=== PATIENT | female | born 1940 | race African-American/Black ===

== ENCOUNTER → 2019-10-08 | Outpatient (CLI) | payer MEDICARE, MEDICAID | END | disposition home or self-care (01) | LOC: CT 07:55 | PROVIDERS: ATTEND Surgery | DX: I51.7 Cardiomegaly (principal); R22.9 Localized swelling, mass and lump, unspecified | CPT/HCPCS: 71250 ==

== ENCOUNTER → 2019-11-07 | Day surgery (SDC) | payer MEDICARE, MEDICAID ==
[~2019-11-07] MED LIST: LIDOCAINE HCL 1% 20ML VIAL (Pyxis) INJ ONE; SODIUM BICARBONATE 4% (2.4MEQ) 5ML VIAL IV ONE
== END | disposition home or self-care (01) ==
LOC: RAD 09:34
PROVIDERS: ATTEND Radiology Radiation Oncology
DX: R59.0 Localized enlarged lymph nodes (principal); C79.89 Secondary malignant neoplasm of other specified sites; Z85.3 Personal history of malignant neoplasm of breast; Z88.5 Allergy status to narcotic agent
CPT/HCPCS: 38505; 76942; 88305; J3490; 19083

== ENCOUNTER 2022-09-18 13:05 | Inpatient (IN) | payer MEDICARE, MEDICAID ==
[~2022-09-18] VITALS: Ht 162.6 cm; Wt 50.6 kg
[2022-09-18] MEDS ORDERED: SODIUM CHLORIDE 0.9% 1,000 ML IV ONE (14:15)
[2022-09-18 15:55] LABS: HEMATOCRIT. 40.1 % (36.0-48.0); HEMOGLOBIN. 13.2 g/dL (12.0-16.0); MEAN CORPUSCULAR HEMOGLOBIN 26.5 pg (28.0-32.0); MEAN CORPUSCULAR VOLUME 80.8 fL (81.0-99.0); MEAN PLATELET VOLUME 8.9 fl (7.4-10.4); RED BLOOD CELL COUNT 4.96 mill/uL (4.2-5.4); RED CELL DISTRIBUTION WIDTH 17.8 % (11.6-14.6)
[2022-09-18 15:58] LABS: CHLORIDE 103 mEq/L (98-107)
[2022-09-18 16:39] LABS: PLATELET ESTIMATE NORMAL
[2022-09-18 16:48] LABS: PLATELET 226 x1000/uL (130-400)
[2022-09-18 17:21] LABS: CLARITY URINE TURBID (CLEAR); COLOR URINE DARK YELLOW (YELLOW); KETONES URINE 1+ (NEGATIVE); LEUKOCYTE ESTERASE URINE 1+ (NEGATIVE); NITRITE URINE NEGATIVE (NEGATIVE); OCCULT BLOOD URINE 1+ (NEGATIVE); PROTEIN URINE 3+ (NEGATIVE); SPECIFIC GRAVITY URINE 1.028 (1.005-1.030)
[2022-09-18] MEDS ORDERED: HYDROCODONE/ACETAMINOPHEN 5/325MG TABLET PO PRN (19:15)
[2022-09-18] MEDS ORDERED: PIPERACILLIN/TAZ 3.375G PREMIX 50 ML IV NR (19:15)
[2022-09-18] MEDS: DEXT 5%/0.45% NACL 1000ML 1,000 ML IV SCH (20:30)
[2022-09-19] MEDS ORDERED: ASPIRIN 81MG TABLET PO NR (03:45)
[2022-09-19] MEDS ORDERED: SODIUM POLYSTYRENE SULFONATE 15 G/60 ML BOT PO NR (03:45)
[2022-09-19] MEDS: HYDROCODONE/ACETAMINOPHEN 5/325MG TABLET PO PRN ×2 (04:57→22:29)
[2022-09-19] MEDS ORDERED: PIPERACILLIN/TAZOBACTAM 3.375 G in DEXTROSE 5% WATER 50 ML IV SCH (08:00)
[2022-09-19] MEDS: ONDANSETRON HCL 4MG/2ML INJ IV PRN (09:12)
[2022-09-19] MEDS ORDERED: NALOXONE HCL 0.4MG/ML VIAL IV PRN (09:45)
[2022-09-19 10:04] VITALS: BP 168/74
[2022-09-19] MEDS ORDERED: ASPI-1497 PO (11:10)
[2022-09-19] MEDS ORDERED: ATOR-2 PO (11:10)
[2022-09-19] MEDS ORDERED: MEGE40TA8 PO (11:10)
[2022-09-19] MEDS ORDERED: AMLO10TA80 PO (11:10)
[2022-09-19] MEDS ORDERED: ESOM40CA PO (11:10)
[2022-09-19] MEDS ORDERED: OXYB5TAB17 PO (11:10)
[2022-09-19] MEDS ORDERED: IRBE150T24 PO (11:10)
[2022-09-19] MEDS: AMLODIPINE 5MG TABLET PO SCH (11:22)
[2022-09-19] MEDS: DEXT 5%/0.45% NACL 1000ML 1,000 ML IV SCH ×2 (11:22→14:35)
[2022-09-19 11:27] VITALS: BP 168/74
[2022-09-19 12:00] VITALS: BP 132/49
[2022-09-19 12:06] LABS: HEMATOCRIT. 33.7 % (36.0-48.0); HEMOGLOBIN. 11.4 g/dL (12.0-16.0); MEAN CORPUSCULAR HEMOGLOBIN 26.7 pg (28.0-32.0); MEAN CORPUSCULAR VOLUME 79.1 fL (81.0-99.0); RED BLOOD CELL COUNT 4.26 mill/uL (4.2-5.4); RED CELL DISTRIBUTION WIDTH 17.8 % (11.6-14.6)
[2022-09-19 12:34] LABS: CHLORIDE 107 mEq/L (98-107)
[2022-09-19 13:55] LABS: PLATELET ESTIMATE NORMAL
[2022-09-19 13:57] LABS: PLATELET 219 x1000/uL (130-400)
[2022-09-19] MEDS: PIPERACILLIN/TAZOBACTAM 3.375 G in DEXTROSE 5% WATER 50 ML IV SCH ×2 (14:35→22:25)
[2022-09-19 16:00] VITALS: BP 141/64
[2022-09-19 20:00] VITALS: BP 124/54
[2022-09-20] VITALS: BP 133/64
[2022-09-20 04:00] VITALS: BP 134/65
[2022-09-20] MEDS: HYDROCODONE/ACETAMINOPHEN 5/325MG TABLET PO PRN ×2 (05:22→12:43)
[2022-09-20 08:00] VITALS: BP 124/61
[2022-09-20] MEDS: AMLODIPINE 5MG TABLET PO SCH (08:39)
[2022-09-20] MEDS: PIPERACILLIN/TAZOBACTAM 3.375 G in DEXTROSE 5% WATER 50 ML IV SCH ×2 (08:39→20:30)
[2022-09-20 12:00] VITALS: BP 117/60
[2022-09-20] MEDS: DEXT 5%/0.45% NACL 1000ML 1,000 ML IV SCH (12:41)
[2022-09-20] MEDS: MEGESTROL ACETATE 40MG TABLET PO SCH ×2 (14:03→14:05)
[2022-09-20 16:00] VITALS: BP 120/65
[2022-09-20 16:08] LABS: HEMATOCRIT. 35.8 % (36.0-48.0); MEAN CORPUSCULAR HEMOGLOBIN 26.4 pg (28.0-32.0); MEAN CORPUSCULAR VOLUME 79.2 fL (81.0-99.0); MEAN PLATELET VOLUME 8.6 fl (7.4-10.4); PLATELET 221 x1000/uL (130-400); RED BLOOD CELL COUNT 4.52 mill/uL (4.2-5.4); RED CELL DISTRIBUTION WIDTH 17.4 % (11.6-14.6)
[2022-09-20 17:13] LABS: CHLORIDE 105 mEq/L (98-107)
[2022-09-20 17:52] LABS: PLATELET ESTIMATE NORMAL
[2022-09-20 20:00] VITALS: BP 136/65
[2022-09-20] MEDS: HYDROMORPHONE HCL/PF 2MG/ML CPJ IV PRN (20:30)
[2022-09-21] VITALS: BP 108/61
[2022-09-21 04:00] VITALS: BP 119/61
[2022-09-21] MEDS: HYDROMORPHONE HCL/PF 2MG/ML CPJ IV PRN ×3 (06:22→23:45)
[2022-09-21 08:00] VITALS: BP 103/59
[2022-09-21] MEDS: MEGESTROL ACETATE 40MG TABLET PO SCH ×2 (08:19→16:31)
[2022-09-21] MEDS: PIPERACILLIN/TAZOBACTAM 3.375 G in DEXTROSE 5% WATER 50 ML IV SCH ×2 (08:20→20:17)
[2022-09-21] MEDS: AMLODIPINE 5MG TABLET PO SCH (08:20)
[2022-09-21 12:00] VITALS: BP 127/63
[2022-09-21] MEDS ORDERED: POTASSIUM CHLORIDE INJ 40 MEQ in DEXT 5% WATER 250 ML IV ONE (13:00)
[2022-09-21] MEDS: ONDANSETRON HCL 4MG/2ML INJ IV PRN (13:07)
[2022-09-21] MEDS: DIATR MEGLU/DIATRIZOATE SOLN 30ML PO NR ×2 (13:08→14:06)
[2022-09-21] MEDS: DEXT 5%/0.45% NACL 1000ML 1,000 ML IV SCH (13:08)
[2022-09-21] MEDS: KCL 20MEQ/100ML X 2 FOR TOTAL KCL 40MEQ/200ML IV SCH ×2 (14:07→16:31)
[2022-09-21 16:00] VITALS: BP 126/73
[2022-09-21 20:00] VITALS: BP 106/69
[2022-09-22] VITALS: BP 119/71
[2022-09-22] MEDS: DEXT 5%/0.45% NACL 1000ML 1,000 ML IV SCH ×2 (01:39→12:08)
[2022-09-22 04:00] VITALS: BP 132/74
[2022-09-22] MEDS: HYDROMORPHONE HCL/PF 2MG/ML CPJ IV PRN ×2 (05:22→16:42)
[2022-09-22 08:00] VITALS: BP 105/66
[2022-09-22] MEDS: MEGESTROL ACETATE 40MG TABLET PO SCH ×2 (08:06→16:42)
[2022-09-22] MEDS: AMLODIPINE 5MG TABLET PO SCH (08:07)
[2022-09-22] MEDS: PIPERACILLIN/TAZOBACTAM 3.375 G in DEXTROSE 5% WATER 50 ML IV SCH ×2 (08:07→20:44)
[2022-09-22 09:23] LABS: HEMATOCRIT. 34.5 % (36.0-48.0); HEMOGLOBIN. 11.7 g/dL (12.0-16.0); MEAN CORPUSCULAR HEMOGLOBIN 26.8 pg (28.0-32.0); MEAN CORPUSCULAR VOLUME 79.2 fL (81.0-99.0); MEAN PLATELET VOLUME 8.6 fl (7.4-10.4); PLATELET 200 x1000/uL (130-400); RED BLOOD CELL COUNT 4.35 mill/uL (4.2-5.4); RED CELL DISTRIBUTION WIDTH 18.2 % (11.6-14.6)
[2022-09-22 11:08] LABS: PLATELET ESTIMATE NORMAL
[2022-09-22 12:00] VITALS: BP 128/69
[2022-09-22 16:00] VITALS: BP 139/69
[2022-09-22 20:00] VITALS: BP 129/69
[2022-09-22] MEDS: HYDROCODONE/ACETAMINOPHEN 5/325MG TABLET PO PRN (21:35)
[2022-09-22 22:26] LABS: INR 1.4; PARTIAL THROMBOPLASTIN TIME 32.6 sec (23.4-31.0); PROTHROMBIN TIME 14.9 sec (9.6-11.0)
[2022-09-23] VITALS (7 sets, daily range): BP systolic 83–137; BP diastolic 46–74
[2022-09-23] MEDS: DEXT 5%/0.45% NACL 1000ML 1,000 ML IV SCH ×3 (01:09→18:19)
[2022-09-23] MEDS: HYDROMORPHONE HCL/PF 2MG/ML CPJ IV PRN ×3 (02:54→18:18)
[2022-09-23] MEDS ORDERED: SODIUM BICARBONATE 4% (2.4MEQ) 5ML VIAL IV ONE (08:34)
[2022-09-23] MEDS ORDERED: LIDOCAINE HCL 1% 10 MG/ML 10ML VIAL ONE (08:35)
[2022-09-23 08:51] LABS: HEMATOCRIT. 32.8 % (36.0-48.0); MEAN CORPUSCULAR HEMOGLOBIN 26.5 pg (28.0-32.0); MEAN CORPUSCULAR VOLUME 78.9 fL (81.0-99.0); MEAN PLATELET VOLUME 9.1 fl (7.4-10.4); PLATELET 218 x1000/uL (130-400); RED BLOOD CELL COUNT 4.16 mill/uL (4.2-5.4); RED CELL DISTRIBUTION WIDTH 18.1 % (11.6-14.6)
[2022-09-23] MEDS: AMLODIPINE 5MG TABLET PO SCH (09:27)
[2022-09-23] MEDS: MEGESTROL ACETATE 40MG TABLET PO SCH ×2 (09:27→18:18)
[2022-09-23] MEDS: PIPERACILLIN/TAZOBACTAM 3.375 G in DEXTROSE 5% WATER 50 ML IV SCH ×2 (09:28→20:48)
[2022-09-23] MEDS: DIPHENHYDRAMINE 25MG CAPSULE PO PRN (09:30)
[2022-09-23] MEDS ORDERED: DILTIAZEM HCL 5MG/ML 5ML VIAL IV NR (09:45)
[2022-09-23 10:24] LABS: PLATELET ESTIMATE NORMAL
[2022-09-23] MEDS: METOPROLOL TARTRATE 25MG TABLET PO SCH ×2 (10:53→20:43)
[2022-09-23] MEDS ORDERED: SODIUM CHLORIDE 0.9% 500 ML IV ONE (13:15)
[2022-09-24] VITALS (7 sets, daily range): BP systolic 102–147; BP diastolic 56–67
[2022-09-24] MEDS: HYDROMORPHONE HCL/PF 2MG/ML CPJ IV PRN (01:17)
[2022-09-24] MEDS: DEXT 5%/0.45% NACL 1000ML 1,000 ML IV SCH ×2 (02:26→12:23)
[2022-09-24] MEDS: AMLODIPINE 5MG TABLET PO SCH (09:00)
[2022-09-24] MEDS: METOPROLOL TARTRATE 25MG TABLET PO SCH ×2 (09:00→21:03)
[2022-09-24] MEDS: PIPERACILLIN/TAZOBACTAM 3.375 G in DEXTROSE 5% WATER 50 ML IV SCH ×2 (10:22→21:03)
[2022-09-24] MEDS: MEGESTROL ACETATE 40MG TABLET PO SCH ×2 (10:22→16:56)
[2022-09-24] MEDS: DIPHENHYDRAMINE 25MG CAPSULE PO PRN (16:56)
[2022-09-24 19:16] LABS: HEMATOCRIT. 31.7 % (36.0-48.0); HEMOGLOBIN. 10.5 g/dL (12.0-16.0); MEAN CORPUSCULAR VOLUME 78.1 fL (81.0-99.0); MEAN PLATELET VOLUME 8.9 fl (7.4-10.4); PLATELET 188 x1000/uL (130-400); RED BLOOD CELL COUNT 4.06 mill/uL (4.2-5.4); RED CELL DISTRIBUTION WIDTH 18.5 % (11.6-14.6)
[2022-09-24 19:32] LABS: CHLORIDE 100 mEq/L (98-107)
[2022-09-24 21:58] LABS: PLATELET ESTIMATE NORMAL
[2022-09-25] VITALS (8 sets, daily range): BP systolic 88–130; BP diastolic 38–80
[2022-09-25] MEDS: DEXT 5%/0.45% NACL 1000ML 1,000 ML IV SCH (00:37)
[2022-09-25 06:54] LABS: HEMATOCRIT. 30.6 % (36.0-48.0); HEMOGLOBIN. 10.3 g/dL (12.0-16.0); MEAN CORPUSCULAR HEMOGLOBIN 26.2 pg (28.0-32.0); MEAN CORPUSCULAR VOLUME 77.8 fL (81.0-99.0); RED BLOOD CELL COUNT 3.93 mill/uL (4.2-5.4); RED CELL DISTRIBUTION WIDTH 18.5 % (11.6-14.6)
[2022-09-25] MEDS: METOPROLOL TARTRATE 25MG TABLET PO SCH ×2 (08:08→20:57)
[2022-09-25] MEDS: MEGESTROL ACETATE 40MG TABLET PO SCH ×2 (08:10→17:00)
[2022-09-25] MEDS: HYDROMORPHONE HCL/PF 2MG/ML CPJ IV PRN (08:12)
[2022-09-25 08:49] LABS: PLATELET ESTIMATE NORMAL
[2022-09-25 08:50] LABS: MEAN PLATELET VOLUME 8.5 fl (7.4-10.4); PLATELET 179 x1000/uL (130-400)
[2022-09-25] MEDS: CITRIC ACID/SODIUM CITRATE SOLN 30ML UDC PO SCH ×4 (09:00→17:00)
[2022-09-25] MEDS: DEXT 5%/0.9% NACL 1,000 ML IV SCH ×2 (09:44→22:24)
[2022-09-25 10:41] LABS: BG BASE EXCESS -10.7 mmol/L (-2.0-2.0); BG CARBOXYHEMOGLOBIN 0.2 % (0.5-1.5); BG DEOXYHEMOGLOBIN 3.7 % (0.0-5.0); BG FRACTION INSPIRED OXYGEN 21; BG HCO3 ACT 13.8 mmol/L (22.0-26.0); BG METHEMOGLOBIN 0.4 % (0.0-1.5); BG OXYGEN SATURATION 96.3 % (92.0-98.5); BG OXYHEMOGLOBIN 95.7 % (94.0-97.0); BG PCO2 26.8 mmHg (35.0-45.0); BG PH 7.329 (7.350-7.450); BG PO2 91.7 mmHg (75.0-100.0); BG SAMPLE SITE RIGHT RADIAL; BG TOTAL HEMOGLOBIN 11.5 g/dL (12.0-18.0); BG VENT MODE ROOM AIR
[2022-09-25] MEDS ORDERED: HYDROMORPHONE HCL/PF 2MG/ML CPJ IV PRN ×2 (10:45→18:00)
[2022-09-25] MEDS ORDERED: NALOXONE HCL 0.4MG/ML VIAL IV PRN (11:00)
[2022-09-25 13:13] LABS: BG BASE EXCESS -11.8 mmol/L (-2.0-2.0); BG CARBOXYHEMOGLOBIN 0.3 % (0.5-1.5); BG DEOXYHEMOGLOBIN 2.2 % (0.0-5.0); BG FRACTION INSPIRED OXYGEN 30; BG HCO3 ACT 12.4 mmol/L (22.0-26.0); BG METHEMOGLOBIN 0.3 % (0.0-1.5); BG OXYGEN SATURATION 97.8 % (92.0-98.5); BG OXYHEMOGLOBIN 97.2 % (94.0-97.0); BG PCO2 23.9 mmHg (35.0-45.0); BG PH 7.332 (7.350-7.450); BG PO2 110.5 mmHg (75.0-100.0); BG SAMPLE SITE RIGHT RADIAL; BG TOTAL HEMOGLOBIN 11.7 g/dL (12.0-18.0); BG VENT MODE NASAL CANNULA
[2022-09-25] MEDS ORDERED: ALBUTEROL (0.083%) 2.5MG/3ML NEB HHN PRN (13:30)
[2022-09-25] MEDS ORDERED: IPRATROPIUM BROMIDE (0.02%) 0.5MG/2.5ML NEB HHN PRN (13:30)
[2022-09-25] MEDS ORDERED: IPRATROPIUM/ALBUTEROL 0.5-3(2.5)MG/3ML NEB HHN PRN (13:30)
[2022-09-25] MEDS ORDERED: SODIUM BICARBONATE 8.4% 1 MEQ/ML 50ML SYR IV NR (13:45)
[2022-09-25] MEDS ORDERED: HYDROCODONE/ACETAMINOPHEN 5/325MG TABLET PO PRN (14:00)
[2022-09-25] MEDS ORDERED: PIPERACILLIN/TAZOBACTAM 3.375 G in DEXTROSE 5% WATER 50 ML IV SCH (17:30)
[2022-09-25] MEDS ORDERED: CEFEPIME 2,000 MG in DEXT 5% WATER 100 ML IV SCH (18:15)
[2022-09-25] MEDS ORDERED: VANCOMYCIN 1G PREMIX 200 ML IV NR (20:00)
[2022-09-26] VITALS: BP 105/54
[2022-09-26 04:00] VITALS: BP 97/57
[2022-09-26] MEDS: CEFEPIME 1,000 MG in DEXTROSE 5% WATER 50 ML IV SCH (05:29)
[2022-09-26 06:34] LABS: HEMATOCRIT. 31.8 % (36.0-48.0); HEMOGLOBIN. 10.6 g/dL (12.0-16.0); MEAN CORPUSCULAR HEMOGLOBIN 26.2 pg (28.0-32.0); MEAN CORPUSCULAR VOLUME 78.9 fL (81.0-99.0); RED BLOOD CELL COUNT 4.03 mill/uL (4.2-5.4); RED CELL DISTRIBUTION WIDTH 18.7 % (11.6-14.6)
[2022-09-26 07:06] LABS: HEPATITIS B SURFACE ANTIGEN NEGATIVE
[2022-09-26 08:00] VITALS: BP 103/49
[2022-09-26] MEDS: METOPROLOL TARTRATE 25MG TABLET PO SCH (09:00)
[2022-09-26] MEDS: MEGESTROL ACETATE 40MG TABLET PO SCH ×3 (09:16→21:19)
[2022-09-26] MEDS: CITRIC ACID/SODIUM CITRATE SOLN 30ML UDC PO SCH ×3 (09:17→17:00)
[2022-09-26 09:57] LABS: PLATELET 176 x1000/uL (130-400)
[2022-09-26 10:03] LABS: PLATELET ESTIMATE NORMAL
[2022-09-26] MEDS ORDERED: DILTIAZEM HCL 5MG/ML 5ML VIAL IV PRN ×2 (10:15→16:15)
[2022-09-26] MEDS ORDERED: DIGOXIN 500MCG/2ML AMP IV NR ×2 (10:30→15:00)
[2022-09-26] MEDS: DEXT 5%/0.9% NACL 1,000 ML IV SCH (11:44)
[2022-09-26 12:00] VITALS: BP 110/74
[2022-09-26] MEDS ORDERED: DIGOXIN 250MCG TABLET PO NR (15:00)
[2022-09-26 16:00] VITALS: BP 101/73
[2022-09-26 20:00] VITALS: BP 116/64
[2022-09-26] MEDS: DILTIAZEM HCL 30MG TABLET PO SCH (21:19)
[2022-09-27] VITALS: BP 107/71
[2022-09-27] MEDS: DEXT 5%/0.9% NACL 1,000 ML IV SCH (00:42)
[2022-09-27 04:00] VITALS: BP 131/64
[2022-09-27] MEDS: CEFEPIME 1,000 MG in DEXTROSE 5% WATER 50 ML IV SCH (04:09)
[2022-09-27] MEDS: DILTIAZEM HCL 30MG TABLET PO SCH (05:35)
[2022-09-27] MEDS: MEGESTROL ACETATE 40MG TABLET PO SCH (05:36)
[2022-09-27 06:59] LABS: HEMATOCRIT. 27.5 % (36.0-48.0); HEMOGLOBIN. 9.2 g/dL (12.0-16.0); MEAN CORPUSCULAR HEMOGLOBIN 26.3 pg (28.0-32.0); MEAN CORPUSCULAR VOLUME 78.3 fL (81.0-99.0); RED BLOOD CELL COUNT 3.51 mill/uL (4.2-5.4); RED CELL DISTRIBUTION WIDTH 18.8 % (11.6-14.6)
[2022-09-27 08:00] VITALS: BP 82/23
[2022-09-27] MEDS: CITRIC ACID/SODIUM CITRATE SOLN 30ML UDC PO SCH (09:00)
[2022-09-27] MEDS ORDERED: NOREPINEPHRINE 8 MG in DEXT 5% WATER 242 ML IV PRN (09:00)
[2022-09-27] MEDS ORDERED: SODIUM BICARBONATE 8.4% 1 MEQ/ML 50ML SYR IV NR (09:09)
[2022-09-27] MEDS ORDERED: SODIUM BICARBONATE 100 MEQ in SODIUM CHLORIDE 0.45% 1,000 ML IV SCH (10:00)
[2022-09-27 13:22] LABS: PLATELET 168 x1000/uL (130-400)
[2022-09-27 13:27] LABS: PLATELET ESTIMATE NORMAL
[2022-09-27] MEDS ORDERED: VANCOMYCIN 500MG PREMIX 100 ML IV NR (18:00)
== END 2022-09-27 09:51 | DRG 438 ==
LOC: ER 13:05 → MICUSO 16:29 → EDBEDREQSVC 16:39 → EDBEDREQ 16:39 → EDBEDREQTM 16:39 → 8WST 09-19 09:33 → CVICU 09-27 09:18
PROVIDERS: ADMIT Internal Medicine; ATTEND Internal Medicine
PROC: 0W9G3ZZ Drainage of Peritoneal Cavity, Percutaneous Approach (ICD-10-PCS; principal; 2022-09-23)
PROC: 06HY33Z Insertion of Infusion Device into Lower Vein, Percutaneous Approach (ICD-10-PCS; 2022-09-27)
PROC: B54CZZA Ultrasonography of Left Lower Extremity Veins, Guidance (ICD-10-PCS; 2022-09-27)
PROC: 5A12012 Performance of Cardiac Output, Single, Manual (ICD-10-PCS; 2022-09-27)
PROC: 4B02XTZ Measurement of Cardiac Defibrillator, External Approach (ICD-10-PCS; 2022-09-27)
DX: K85.90 Acute pancreatitis without necrosis or infection, unspecified (principal); G92.8 Other toxic encephalopathy; N17.0 Acute kidney failure with tubular necrosis; E46 Unspecified protein-calorie malnutrition; E87.1 Hypo-osmolality and hyponatremia; E87.20 Acidosis, unspecified; R18.8 Other ascites; Z68.1 Body mass index [BMI] 19.9 or less, adult; E87.5 Hyperkalemia; D64.9 Anemia, unspecified; E86.9 Volume depletion, unspecified; Z20.822 Contact with and (suspected) exposure to COVID-19; Z85.3 Personal history of malignant neoplasm of breast; K74.60 Unspecified cirrhosis of liver; N18.9 Chronic kidney disease, unspecified; E78.00 Pure hypercholesterolemia, unspecified; E87.6 Hypokalemia; I13.10 Hypertensive heart and chronic kidney disease without heart failure, with stage 1 through stage 4 chronic kidney disease, or unspecified chronic kidney disease; I48.91 Unspecified atrial fibrillation; K31.9 Disease of stomach and duodenum, unspecified; K83.8 Other specified diseases of biliary tract; R62.7 Adult failure to thrive; Z88.6 Allergy status to analgesic agent; Z82.49 Family history of ischemic heart disease and other diseases of the circulatory system; Z90.49 Acquired absence of other specified parts of digestive tract; T50.7X5A Adverse effect of analeptics and opioid receptor antagonists, initial encounter
CPT/HCPCS: 31500; 36415; 36600; 49083; 71045; 74176; 74177; 74181; 76700; 80048; 80053; 80061; 80076; 80202; 81003; 82375; 82570; 82805; 82962; 83036; 83605; 83735; 83880; 84145; 84156; 84443; 84484; 85025; 86803; 87340; 87426; 92950; 93005; 93306; 93970; 94640; 97165; 99291; C1893; J0692; J1160; J1170; J2310; J2405; J2543; J3370; J3480; J3490; J7030; J7042; J7060; Q0163; Q9963